=== PATIENT | female | born 1955 | race Caucasian/White ===

== ENCOUNTER 2018-01-08 22:18 | Emergency (ER) | payer BC, OTHER ==
[~2018-01-08 22:18] MED LIST: CEPH500C3 PO; CIPR500T4 PO; FLAG500T PO; HYDR-3533 PO; LEVO.1 PO; OMEP20TA39 PO
[2018-01-08 22:48] VITALS: BP 205/105; PULSE 103; RESP 15; TEMP 98.8; O2SAT 94
[2018-01-08 22:58] VITALS: BP 189/108; PULSE 122; RESP 16; O2SAT 96
[2018-01-08] MEDS ORDERED: LEVO.1 PO (22:58)
[2018-01-08] MEDS ORDERED: SULF500T3 PO (22:58)
[2018-01-08] MEDS ORDERED: METO50TA PO (22:58)
--- NOTE | 2018-01-08 23:27 | PD ---
HPI Chief Complaint: Abdominal Pain Time Seen by Provider: 22:58 Travel History International Travel<30 days: No Contact w/Intl Traveler<30days: No Traveled to known affect area: No History of Present Illness HPI The patient is a 62 year old female who presents to the [facility] [address] emergency department with a history of developing a sharp pain in the left lower quadrant of the abdomen on Monday evening. She went to see her primary care physician on and was diagnosed with diverticulitis that she does have a history of this previously. She was started on ciprofloxacin and Flagyl. She reports that she has been taking the medication as prescribed. She reports that her stools have been slightly softer than usual and occurring 2-3 times in 1 day. She denies having any blood in her stool or black or tarry stools. She denies having any mucus in her stool. She denies having any fevers or chills. She denies having any night sweats. She reports that this evening she became concerned when she had a new pain in the right flank that radiated down into the right hip and right anterior thigh. She denies ever having a pain like this previously. 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 She reports that she last had a colonoscopy done in 2010. She reports that she last had diverticulitis in June 2017. She denies having any nausea or vomiting. She reports that since she has had urinary frequency and urgency. She denies having any dysuria. She denies having any prior history of kidney stones. On review of systems otherwise, she denies having any recent cough or congestion, neck pain, chest pain, shortness of breath, or neurologic symptoms. [facility] Past Medical History Narrative Medical The patient's past medical history is significant for microscopic colitis, diverticulitis, acid reflux, hypertension, asthma, hypothyroid disorder. Heart Rhythm Problems: No Cardiac Catheterization: No Cardiovascular Problems: No High Cholesterol: No Chest Pain: Yes Congestive Heart Failure: No Diabetes: No Diminished Hearing: No Diverticulitis: Yes Gastrointestinal Disorders: Yes ("microscopic colitis") GERD: Yes Hypertension: No Respiratory: Yes (ASTHMA) Myocardial Infarction: No Thyroid Disease: Yes (hypothyroidism) ?: Not : 2 Para: 2 Past Surgical History Narrative Surgical The patient's past surgical history is significant for cyst removal, tonsillectomy. Coronary Artery Bypass Graft: No Tonsillectomy: Yes Other Surgery: Yes (cyst removal (under breast, back)) Social History Alcohol Use: Yes (social) Tobacco Use: No (quit 16 years ago) Substance Use: No Allergies-Medications (Allergen,Severity, Reaction): Coded Allergies: amoxicillin (Unverified Allergy, Severe, HIVES, 01/08/18) clavulanic acid (Unverified Allergy, Severe, HIVES, 01/08/18) Reported Meds & Prescriptions Reported Meds & Active Scripts Active Reported Sulfasalazine 500 Mg Tab 500 Mg PO BID Metoprolol Tartrate 50 Mg Tab 50 Mg PO DAILY Synthroid (Levothyroxine Sodium) 100 Mcg Tab 100 Mcg PO DAILY Review of Systems Except as stated in HPI: all other systems reviewed are Neg General / Constitutional: No: Fever Eyes: No: Visual changes HENT: No: Headaches Cardiovascular: No: Chest Pain or Discomfort Respiratory: No: Shortness of Breath Gastrointestinal: Positive: Abdominal Pain, Changes in Bowel Habits, No: Nausea , Vomiting, Diarrhea, Hematochezia, Indigestion, Loss of Appetite Genitourinary: Positive: Urgency, Frequency, No: Dysuria Musculoskeletal: No: Pain Skin: No Rash Neurologic: No: Weakness, Focal Abnormalities, Change in Mentation, Slurred Speech, Sensory Disturbance Psychiatric: No: Depression Endocrine: No: Polydipsia Hematologic/Lymphatic: No: Easy Bruising Physical Exam Narrative General: The patient is a well-developed well-nourished female in no acute distress. Head and Neck exam: Head is normocephalic atraumatic. Eyes: EOMI, pupils are equal round and reactive to light. Nose: Midline septum with pink mucous membranes Mouth: Dentition unremarkable. Moist mucus membranes. Posterior oropharynx is not erythematous. No tonsillar hypertrophy. Uvula midline. Airway patent. Neck: No palpable lymphadenopathy. No nuchal rigidity. No thyromegaly. Cardiovascular: Regular rate and rhythm without murmurs, gallops, or rubs. No pulse deficit to the extremities on simultaneous auscultation and palpation of her radial artery. Lungs: Clear to auscultation bilaterally. No wheezes, rhonchi, or rales. Abdomen: Soft, without tenderness to palpation in all 4 quadrants of the abdomen. No guarding, rebound, or rigidity. Normal bowel sounds are audible. No tenderness on palpation of McBurney's point. Negative Graves sign. No palpable inguinal hernias. Extremities: No clubbing, cyanosis, or edema. 2+ pulses in all 4 extremities. No calf tenderness on palpation. No shortening or rotation of the extremities. No deformities of the extremities. The patient has full range of motion with flexion, extension, internal and external rotation of her hips. Back: No spinous process tenderness to palpation. No costovertebral angle tenderness to palpation. Neurologic Exam: Grossly nonfocal. Skin Exam: No rash noted. Intact skin that is warm and dry. Data Data Last Documented VS Vital Signs Date Time Temp Pulse Resp B/P (MAP) Pulse Ox O2 Delivery O2 Flow Rate FiO2 01/09/18 00:21 111 16 149/78 (101) 96 Room Air 01/08/18 22:48 98.8 Orders Orders Electrocardiogram (01/08/18:) Complete Blood Count With Diff (01/08/18:) Comprehensive Metabolic Panel (01/08/18:) Troponin I (01/08/18:) Prothrombin Time / Inr (Pt) (01/08/18:) Act Partial Throm Time (Ptt) (01/08/18:) Blood Culture (01/08/18:) C-Reactive Protein (Crp) (01/08/18:) Lipase (01/08/18:) Urinalysis - C+S If Indicated (01/08/18:) Magnesium (Mg) (01/08/18:) Chest, Single Ap (01/08/18:) Iv Access Insert/Monitor (01/08/18:) Ecg Monitoring (01/08/18:) Oximetry (01/08/18:00) Lactic Acid Sepsis Protocol (01/08/18:) Ct Abd/Pel W Iv Contrast(Rout) (01/08/18:00) Sodium Chlor 0.9% 1000 Ml Inj (Ns 1000 M (01/09/18 01:00) Ketorolac Inj (Toradol Inj) (01/09/18 01:00) Iohexol 350 Inj (Omnipaque 350 Inj) (01/09/18 01:26) Labs Laboratory Tests Test 01/08/18 23:20 01/08/18 23:25 Urine Color LIGHT-YELLOW Urine Turbidity CLEAR Urine pH 5.0 Urine Specific [place] 1.006 Urine Protein NEG mg/dL Urine Glucose (UA) NEG mg/dL Urine Ketones NEG mg/dL Urine Occult Blood NEG Urine Nitrite NEG Urine Bilirubin NEG Urine Urobilinogen LESS THAN 2.0 MG/DL Urine Leukocyte Esterase NEG Urine Mucus FEW /lpf Microscopic Urinalysis Comment CULT NOT INDICATED White Blood Count 10.5 TH/MM3 Red Blood Count 4.60 MIL/MM3 Hemoglobin 15.0 GM/DL Hematocrit 44.2 % Mean Corpuscular Volume 96.1 FL Mean Corpuscular Hemoglobin 32.7 PG Mean Corpuscular Hemoglobin Concent 34.0 % Red Cell Distribution Width 13.5 % Platelet Count 290 TH/MM3 Mean Platelet Volume 7.8 FL Neutrophils (%) (Auto) 55.9 % Lymphocytes (%) (Auto) 31.6 % Monocytes (%) (Auto) 9.8 % Eosinophils (%) (Auto) 1.6 % Basophils (%) (Auto) 1.1 % Neutrophils # (Auto) 5.9 TH/MM3 Lymphocytes # (Auto) 3.3 TH/MM3 Monocytes # (Auto) 1.0 TH/MM3 Eosinophils # (Auto) 0.2 TH/MM3 Basophils # (Auto) 0.1 TH/MM3 CBC Comment DIFF FINAL Differential Comment Prothrombin Time 10.1 SEC Prothromb Time International Ratio 1.0 RATIO Activated Partial Thromboplast Time 27.2 SEC Blood Urea Nitrogen 19 MG/DL Creatinine 1.00 MG/DL Random Glucose 111 MG/DL Total Protein 8.2 GM/DL Albumin 3.8 GM/DL Calcium Level 9.6 MG/DL Magnesium Level 2.2 MG/DL Alkaline Phosphatase 81 U/L Aspartate Amino Transf (AST/SGOT) 23 U/L Alanine Aminotransferase (ALT/SGPT) 20 U/L Total Bilirubin 0.3 MG/DL Sodium Level 140 MEQ/L Potassium Level 3.9 MEQ/L Chloride Level 107 MEQ/L Carbon Dioxide Level 23.2 MEQ/L Anion Gap 10 MEQ/L Estimat Glomerular Filtration Rate 56 ML/MIN Lactic Acid Level 1.2 mmol/L Troponin I LESS THAN 0.02 NG/ML C-Reactive Protein 4.24 MG/DL Lipase 255 U/L MDM Medical Decision Making Medical Screen Exam Complete: Yes Emergency Medical Condition: Yes Medical Record Reviewed: Yes Interpretation(s) Last Impressions Chest X-Ray 01/08/182299 Signed Impressions: Service Date/Time: Monday, January 08, 2018 23:30 - CONCLUSION: No acute disease. Saul Bonner MD Abdomen/Pelvis CT 01/08/182299 Signed Impressions: Service Date/Time: Tuesday, January 09, 2018 01:25 - CONCLUSION: 1. Mild proximal sigmoid diverticulitis without free air, free fluid, abscess or obstruction. Saul Bonner MD Differential Diagnosis Perforated bowel, versus diverticulitis with abscess formation, versus uncomplicated diverticulitis, versus pyelonephritis, versus kidney stone Narrative Course During the course of the patient's emergency department visit, the patient's history, examination, and differential diagnosis were reviewed with the patient. The patient was placed on a surveillance system monitor with oximetry and frequent blood pressure monitoring. The patient had IV access obtained and blood work sent for analysis. The patient was initially provided normal saline 1 L IV fluid bolus, Toradol 15 mg IV per The patient's laboratory studies were reviewed and remarkable for a white count of 10.5, hemoglobin 15, platelets 290 with 9.8 monocytes, CMP is remarkable for a BUN of 19, glucose 111, troponin I less than 0.02, C-reactive protein is elevated at 4.24, lipase 255, lactic acid is 1.2, PT PT within normal limits, urinalysis is unremarkable. Radiology studies were reviewed and remarkable for a chest x-ray shows no acute cardiopulmonary disease. No evidence of free air. A CT scan of the abdomen pelvis shows mild proximal sigmoid diverticulitis without free air, free fluid, abscess, or obstruction. The patient will be discharged home to continue on the ciprofloxacin and Flagyl that the patient was previously started on. She is instructed to follow-up with her primary care physician in the next 2-3 days regarding her progress with the treatment. The patient is resting comfortably and feels better, is alert and in no distress. The patient's results and examination findings were discussed with the patient. The repeat examination is unremarkable and benign. The history, exam, diagnostic testing, and current condition do not suggest any significant pathology to warrant further testing, continued ED treatment, admission, or surgical evaluation at this point. The vital signs have been stable. The patient does not have uncontrollable pain, intractable vomiting, or other significant symptoms. The patient's condition is stable and appropriate for discharge. The patient will pursue further outpatient evaluation with a primary care physician or other designated or consulting physician as indicated in the discharge instructions. The patient expressed understanding and was agreeable with this plan. Diagnosis Primary Impression: Diverticulitis Referrals: Samuel Groves MD 1 week Primary Care Physician 3 days Patient Instructions: Diverticulitis (ED), General Instructions Med/Other Pt SpecificInfo: No Change to Meds Disposition: 01 DISCHARGE HOME Condition: Stable Keely Esparza MD Jan 08, 2018 23:27
[2018-01-08 23:30] VITALS: O2SAT 98
[2018-01-08 23:58] LABS: PROTHROMBIN TIME - PATIENT 10.1 SEC (9.8-11.6)
[2018-01-08 23:59] LABS: AUTOMATED NEUTROPHIL # 5.9 TH/MM3 (1.8-7.7); BASOPHIL # 0.1 TH/MM3 (0-0.2); BASOPHIL % 1.1 % (0.0-2.0); EOSINOPHIL # 0.2 TH/MM3 (0-0.4); EOSINOPHIL % 1.6 % (0.0-4.0); HEMATOCRIT 44.2 % (35.0-46.0); LYMPH % 31.6 % (9.0-44.0); LYMPHOCYTE # 3.3 TH/MM3 (1.0-4.8); MEAN CELL VOLUME 96.1 FL (80.0-100.0); MEAN CORPUSCULAR HEMOGLOBIN 32.7 PG (27.0-34.0); MEAN PLATELET VOLUME 7.8 FL (7.0-11.0); MONO % 9.8 % (0.0-8.0); NEUT % 55.9 % (16.0-70.0); PLATELET COUNT 290 TH/MM3 (150-450); RED CELL DISTRIBUTION WIDTH 13.5 % (11.6-17.2); WHITE BLOOD COUNT 10.5 TH/MM3 (4.0-11.0)
--- NOTE | 2018-01-08 23:59 | RADRPT ---
EXAM DATE/TIME: 01/08/2018 23:30 [facility] COMPARISON: No previous studies available for comparison. INDICATIONS : Short of breath, free air. MEDICAL HISTORY : None. SURGICAL HISTORY : None. ENCOUNTER: Initial ACUITY: 1 day PAIN SCORE: 0/10 LOCATION: Bilateral chest FINDINGS: A single view of the chest demonstrates the lungs to be symmetrically aerated without evidence of mas s, infiltrate or effusion. The cardiomediastinal contours are unremarkable. Osseous structures are intact. CONCLUSION: No acute disease. Saul Bonner MD on January 08, 2018 at 23:58 Board Certified Radiologist. This report was verified electronically.
[2018-01-09 00:01] LABS: BILIRUBIN, URINE NEG (NEG); BLOOD, URINE NEG (NEG); GLUCOSE,URINE NEG (NEG); KETONE, URINE NEG (NEG); MUCUS URINE FEW /lpf (OCC); NITRITE,URINE NEG (NEG); URINE COLOR LIGHT-YELLOW (YELLW/STRAW); URINE LEUKOCYTE ESTERASE NEG (NEG)
[2018-01-09 00:07] LABS: ALKALINE PHOSPHATASE 81 U/L (45-117); C-REACTIVE PROTEIN 4.24 MG/DL (0.00-0.30); TOTAL BILIRUBIN ADULT 0.3 MG/DL (0.2-1.0); TOTAL PROTEIN 8.2 GM/DL (6.4-8.2); TROPONIN I LESS THAN 0.02 NG/ML (0.02-0.05)
[2018-01-09 00:09] LABS: ALBUMIN 3.8 GM/DL (3.4-5.0); ALT (GPT) 20 U/L (10-53); AST (GOT) 23 U/L (15-37); BICARBONATE 23.2 MEQ/L (21.0-32.0); BLOOD UREA NITROGEN 19 MG/DL (7-18); CALCIUM 9.6 MG/DL (8.5-10.1); CHLORIDE 107 MEQ/L (98-107); GLOMERULAR FILTRATION RATE 56 ML/MIN (>89); GLUCOSE,RANDOM 111 MG/DL (74-106); MAGNESIUM 2.2 MG/DL (1.5-2.5); SODIUM (NA) 140 MEQ/L (136-145)
[2018-01-09 00:21] VITALS: BP 149/78; PULSE 111; RESP 16; O2SAT 96
[2018-01-09] MEDS ORDERED: KETOROLAC TROMETHAMINE 30 MG/ML (IVP) VIAL IV PUSH ONE (01:00)
[2018-01-09] MEDS ORDERED: SODIUM CHLOR 0.9% 1000 ML INJ 1,000 ML IV ONE (01:00)
[2018-01-09] MEDS ORDERED: IOHEXOL 350 MG/ML 10 ML VIAL (for RAD DIAG) IVCONTRAST ONE (01:26)
--- NOTE | 2018-01-09 01:40 | RADRPT ---
EXAM DATE/TIME: 01/09/2018 01:25 [facility] COMPARISON: No previous studies available for comparison. INDICATIONS : Abdomen and low back pain. IV CONTRAST: 80 cc Omnipaque 350 (iohexol) IV ORAL CONTRAST: No oral contrast ingested. RADIATION DOSE: 10.65 CTDIvol (mGy) MEDICAL HISTORY : Diverticulitis. Gastroesophageal reflux disease. SURGICAL HISTORY : None. ENCOUNTER: Initial ACUITY: 1 day PAIN SCALE: 5/10 LOCATION: abdomen and back TECHNIQUE: Volumetric scanning of the abdomen and pelvis was performed. Using automated exposure control and ad justment of the mA and/or kV according to patient size, radiation dose was kept as low as reasonably achievable to obtain optimal diagnostic quality images. DICOM format image data is available electro nically for review and comparison. FINDINGS: Lung bases are clear. Mild fatty liver. Spleen, adrenals, kidneys and pancreas unremarkable. No calcified gallstones or manuel iary ductal dilatation. There is a mild proximal sigmoid diverticulitis without abscess, obstruction, free fluid or free air. The appendix is normal. Degenerative disc disease in lumbar spine. CONCLUSION: 1. Mild proximal sigmoid diverticulitis without free air, free fluid, abscess or obstruction. Saul Bonner MD on January 09, 2018 at 1:36 Board Certified Radiologist. This report was verified electronically.
--- NOTE | 2018-01-09 05:23 | EKG ---
Date Performed: 01/08/2018 Time Performed: 23:40:10 PTAGE: 62 years EKG: SINUS TACHYCARDIA POSSIBLE LEFT ATRIAL ENLARGEMENT LOW QRS VOLTAGE IN PRECORDIAL LEADS ABNO RMAL RHYTHM ECG PREVIOUS TRACING : 07/08/2015 09.53 No significant change from previous tracing noted. DOCTOR: Remi Bright Interpretating Date/Time 01/09/2018 05:22:37
== END 2018-01-09 02:09 | disposition home or self-care (01) ==
LOC: NEPE 22:18
DX: K57.32 Diverticulitis of large intestine without perforation or abscess without bleeding (principal); R35.0 Frequency of micturition; R39.15 Urgency of urination; R94.31 Abnormal electrocardiogram [ECG] [EKG]; I10 Essential (primary) hypertension; K21.9 Gastro-esophageal reflux disease without esophagitis; E03.9 Hypothyroidism, unspecified; Z87.19 Personal history of other diseases of the digestive system; Z87.09 Personal history of other diseases of the respiratory system
CPT/HCPCS: 71045; 74177; 80053; 81001; 83605; 83690; 83735; 84484; 85025; 85610; 85730; 86140; 87040; 93005; 96360; 99285; J7030; Q9967